=== PATIENT | female | born 1990 | race Caucasian/White ===

== ENCOUNTER → 2018-09-28 10:06 | Outpatient (CLI) | payer OTHER, MEDICAID, SELFPAY ==
--- NOTE | 2018-09-28 | DI.US.S_ITS ---
PROCEDURE: US OB >= 14 WEEKS FETUS INDICATIONS: ANATOMY SCAN OUTSIDE/PRIOR DATING DATA: Last menstrual period (LMP): 05/06/18. LMP-based estimated date of delivery (ASHA): 02/10/19. First dating scan (date and location): 09/28/18. Estimated date of delivery (ASHA) from first dating scan: 02/18/19. TECHNIQUE: Real-time scanning was performed of the fetus, with image documentation and biometric measurements. Endovaginal scanning: No COMPARISON: [facility], OB COMPLETE 14WKS OR MORE, 12/18/2016, 10:22. FINDINGS: General: A single living intrauterine gestation is present. Presentation: Breech. Placenta: Placental position is posterior, without previa. Amniotic fluid index: 1.3 cm, normal range is 5-24 cm. heart rate: 155 beats per minute. Maternal cervical canal: 4.0 cm long. Normal lower limit is 2.5 cm. biometrics: Biparietal diameter: 18 weeks 6 days Head circumference: 19 weeks 4 days Abdominal circumference: 20 weeks 0 days Femur length: 19 weeks 6 days Estimated gestational age from initial scan: 20 weeks 5 days Composite gestational age from present scan: 19 weeks 4 days Estimated weight and percentile: 318 g; 10th percentile based on LMP. Measurement variability for biometric dating: +/- 7 days from 14 weeks to 15 weeks 6 days gestation, +/- 10 days from 16 weeks to 21 weeks 6 days gestation, +/- 2 weeks from 22 weeks to 27 weeks 6 days gestation, +/- 3 weeks for 28 weeks gestation or later. weight reference: 4500 g or EFW >90/95% is considered macrosomia or large for gestational age. EFW <10% is small for gestational age. EFW 5% or less is considered intra-uterine growth restriction. Anatomic survey: Neuro: Ventricles are non-dilated at less than 10 mm. Cisterna magna is normal at 3-11 mm. Cerebellum is normal in size and morphology. Nuchal skin fold: Normal at less than 6 mm between 14-21 weeks gestational age. Face: Nose and lips, facial profile are normal. Spine: No evidence for spina bifida. Heart: 4-chambered heart is present, with normal ventricular outflow tracts. Diaphragm: Diaphragm is intact. Stomach: Left-sided stomach is present. Kidneys: No hydronephrosis. Normal is less than 5 mm in 2nd trimester, less than 7 mm in 3rd trimester. Cord: 3-vessel cord has orthotopic insertion. Bladder: Normal in size. Extremities: All 4 extremities identified. IMPRESSION: 1. Single living IUP with mean composite gestational age of 19 weeks 4 days corresponding to ultrasound ASHA of 02/18/19. 2. Normal anatomic survey. Dictated by: Mihir Correa [facility] Interpreted: Simon Campos MD on 09/28/2018 at 13:26 Approved by: Simon Campos M.D. on 09/28/2018 at 15:02
== END ==
PROVIDERS: Visit Provider Midwife
DX: Z36.89 Encounter for other specified antenatal screening (principal); Z3A.19 19 weeks gestation of pregnancy
CPT/HCPCS: 76811

== ENCOUNTER → 2018-12-18 09:26 | Outpatient (CLI) | payer OTHER, MEDICAID, SELFPAY ==
--- NOTE | 2018-12-18 | DI.US.S_ITS ---
PROCEDURE: US OB LIMITED INDICATIONS: SMALL FOR GESTATIONAL AGE ON ANATOMY SCAN OUTSIDE/PRIOR DATING DATA: Last menstrual period (LMP): 05/06/18. LMP-based estimated date of delivery (ASHA): 02/10/19. First dating scan (date and location): Not performed. Estimated date of delivery (ASHA) from first dating scan: Not available. TECHNIQUE: Real-time scanning was performed of the fetus, with image documentation and biometric measurements. Endovaginal scanning: Not performed COMPARISON: None. FINDINGS: General: A single living intrauterine gestation is present. Presentation: Vertex. Placenta: Placental position is posterior fundal, without previa. Amniotic fluid index: 11.6 cm, normal range is 5-24 cm. heart rate: 152 beats per minute. Maternal cervical canal: 4.5 cm long. Normal lower limit is 2.5 cm. biometrics: Biparietal diameter: 7.8 cm, 31 weeks 2 days. Head circumference: 29.7 cm, 32 weeks 6 days. Abdominal circumference: 27.4 cm, 31 weeks 3 days. Femur length: 5.9 cm, 30 weeks 5 days. Estimated gestational age by last menstrual period. 31 week one day Composite gestational age from present scan: 31 weeks 4 days. Estimated weight and percentile: 1757 g, 46% Measurement variability for biometric dating: +/- 7 days from 14 weeks to 15 weeks 6 days gestation, +/- 10 days from 16 weeks to 21 weeks 6 days gestation, +/- 2 weeks from 22 weeks to 27 weeks 6 days gestation, +/- 3 weeks for 28 weeks gestation or later. weight reference: 4500 g or EFW >90/95% is considered macrosomia or large for gestational age. EFW <10% is small for gestational age. EFW 5% or less is considered intra-uterine growth restriction. Other: Limited evaluation of chest/diaphragm, four-chamber heart, stomach/abdomen, bilateral kidneys and urinary bladder show no gross abnormality. IMPRESSION: 1. Single live intrauterine with fetus in vertex presentation. heart rate is 152 beats per minute. Normal growth. Normal amount of amniotic fluid. 2. Limited anatomic survey shows no gross abnormality. Dictated by: Simon Campos M.D. on 12/18/2018 at 11:31 Approved by: Simon Campos M.D. on 12/18/2018 at 11:34
== END ==
PROVIDERS: PCP Midwife; Visit Provider Midwife
DX: O36.5930 Maternal care for other known or suspected poor fetal growth, third trimester, not applicable or unspecified (principal); Z3A.31 31 weeks gestation of pregnancy
CPT/HCPCS: 76815

== ENCOUNTER → 2020-05-22 08:17 | Outpatient (CLI) | payer OTHER, MEDICAID, SELFPAY ==
--- NOTE | 2020-05-22 | DI.US.S_ITS ---
PROCEDURE: US PELVIC COMPLETE INDICATIONS: LOWER ABDOMINAL PAIN TECHNIQUE: Real-time scanning was performed of the pelvic organs, with image documentation. Additional endovaginal scanning was necessary due to incomplete visualization of the adnexal and endometrial structures by transabdominal scanning. COMPARISON: None. FINDINGS: Transabdominal scanning: Limited scanning through the kidneys shows no hydronephrosis. No pathologic free abdominal or pelvic fluid. Endovaginal scanning: Uterus: Uterus is normal in size at 9.6 x 5.7 x 4.2 cm. The endometrium measures 10-11 mm in combined thickness. A trace of simple fluid can be seen along the cervical canal. Ovaries: The right ovary measures 2.7 x 1.7 x 1.2 cm and demonstrates a thick-walled cyst with internal echoes and peripheral vascularity that measures 1.3 x 0.7 x 1.1 cm. The left ovary measures 3.1 x 2.5 x 2.6 cm and demonstrates a thick walled simple appearing cyst seen that measures up to 1.7 cm. Normal appearing arterial and venous flow is confirmed to each ovary. No adnexal masses can be seen on either side. IMPRESSION: No imaging explanation is found for this patient's presenting symptoms. There is a complex cyst seen involving the right ovary, which is likely related to hemorrhagic cyst. At clinical discretion, a followup pelvic ultrasound is suggested in 6 weeks to assure resolution/ improvement. Dictated by: Yonas Ambriz M.D. on 05/22/2020 at 9:55 Approved by: Yonas Ambriz M.D. on 05/22/2020 at 9:57
== END ==
PROVIDERS: PCP Nurse Practitioner Family; Referring Provider Nurse Practitioner Family; Visit Provider Nurse Practitioner Family
DX: R10.30 Lower abdominal pain, unspecified (principal); N83.291 Other ovarian cyst, right side
CPT/HCPCS: 76856

== ENCOUNTER → 2020-09-26 09:13 | Outpatient (CLI) | payer OTHER, MEDICAID, SELFPAY ==
--- NOTE | 2020-09-26 | DI.US.S_ITS ---
PROCEDURE: US OB >= 14 WEEKS FETUS INDICATIONS: ANATOMY SCAN OUTSIDE/PRIOR DATING DATA: Last menstrual period (LMP): 05/06/20 . LMP-based estimated date of delivery (ASHA): 02/10/21 . First dating scan (date and location): 09/26/20 . Estimated date of delivery (ASHA) from first dating scan: 02/18/21 . TECHNIQUE: Real-time scanning was performed of the fetus, with image documentation and biometric measurements. Endovaginal scanning: Not performed COMPARISON: [facility], PELVIC COMPLETE, 06/26/2020, 16:04. [facility], PELVIC COMPLETE, 05/22/2020, 8:31. [facility], OB >= 14 WEEKS FETUS, 09/28/2018, 10:28. FINDINGS: General: A single living intrauterine gestation is present. Presentation: Breech. Placenta: Placental position is posterior , without previa. Amniotic fluid index: 11.3 cm, normal range is 5-24 cm. Largest pocket measures 3.5 cm heart rate: 157 beats per minute. Maternal cervical canal: 7.3 cm long. Normal lower limit is 2.5 cm. biometrics: Biparietal diameter: 4.5 cm, 19 weeks 3 days Head circumference: 16.8 cm, 19 weeks 3 days Abdominal circumference: 14.1 cm, 19 weeks 3 days Femur length: 2.9 cm, 19 weeks 0 days Estimated gestational age from initial scan: not applicable. Composite gestational age from present scan: 19 weeks 2 days Estimated weight and percentile: 286 g, 6th percentile Measurement variability for biometric dating: +/- 7 days from 14 weeks to 15 weeks 6 days gestation, +/- 10 days from 16 weeks to 21 weeks 6 days gestation, +/- 2 weeks from 22 weeks to 27 weeks 6 days gestation, +/- 3 weeks for 28 weeks gestation or later. weight reference: 4500 g or EFW >90/95% is considered macrosomia or large for gestational age. EFW <10% is small for gestational age. EFW 5% or less is considered intra-uterine growth restriction. Anatomic survey: Neuro: Ventricles are non-dilated at less than 10 mm. Cisterna magna is normal at 3-11 mm. Cerebellum is normal in size and morphology. Nuchal skin fold: Normal at less than 6 mm between 14-21 weeks gestational age. Face: Nose and lips, facial profile are normal. Spine: No evidence for spina bifida. Heart: Left ventricular outflow track within normal limits otherwise the heart and right ventricular outflow tract not seen secondary to position. Diaphragm: Diaphragm is intact. Stomach: Left-sided stomach is present. Kidneys: No hydronephrosis. Normal is less than 5 mm in 2nd trimester, less than 7 mm in 3rd trimester. Cord: 3-vessel cord has orthotopic insertion. There is marginal placental cord insertion approximately 0.6 cm from the edge. Bladder: Normal in size. Extremities: All 4 extremities identified. IMPRESSION: Single living intrauterine fetus in breech presentation. Estimated weight at the 6th percentile as above. heart and ventricular outflow tracts not well sonographically visualized. Recommend follow-up. Remaining anatomic survey within normal limits Marginal placental cord insertion. Dictated by: Thompson Townsend M.D. on 09/26/2020 at 16:27 Approved by: Thompson Townsend M.D. on 09/26/2020 at 16:33
== END ==
PROVIDERS: PCP Nurse Practitioner Family; Referring Provider Midwife; Visit Provider Midwife
DX: Z36.89 Encounter for other specified antenatal screening (principal); Z3A.19 19 weeks gestation of pregnancy
CPT/HCPCS: 76811

== ENCOUNTER → 2020-10-23 09:23 | Outpatient (CLI) | payer OTHER, MEDICAID, SELFPAY ==
--- NOTE | 2020-10-23 09:25 | DI.US.S_ITS ---
PROCEDURE: US OB FOLLOW UP INDICATIONS: FOLLOW UP ANATOMY OUTSIDE/PRIOR DATING DATA: Last menstrual period (LMP): 05/06/20 LMP-based estimated date of delivery (ASHA): 02/10/21 . First dating scan (date and location): 09/26/20 Estimated date of delivery (ASHA) from first dating scan: 02/18/21 . TECHNIQUE: Real-time scanning was performed of the fetus, with image documentation. Endovaginal scanning: Not performed COMPARISON: [facility], OB >= 14 WEEKS FETUS, 09/26/2020, 9:57. [facility], PELVIC COMPLETE, 06/26/2020, 16:04. [facility] PELVIC COMPLETE, 05/22/2020, 8:31. FINDINGS: A single living intrauterine gestation is present. Presentation: Breech. Placenta: Placental position is posterior , without previa. heart rate: 178 beats per minute. Maternal cervical canal: 4.4 cm long. Normal lower limit is 2.5 cm. Estimated gestational age from initial scan: 23 weeks 1 day . There is normal appearance of the 4 chambered heart, right ventricular outflow tract, chest, stomach, kidneys and urinary bladder. Marginal placental cord insertion again noted although not well seen on the current examination. IMPRESSION: Single living intrauterine fetus in breech presentation Normal appearance of the four-chamber heart and right ventricular outflow tract, which completes the anatomic survey Dictated by: Thompson Townsend M.D. on 10/23/2020 at 15:32 Approved by: Thompson Townsend M.D. on 10/23/2020 at 15:36
== END ==
PROVIDERS: PCP Nurse Practitioner Family; Referring Provider Midwife; Visit Provider Midwife
DX: Z36.2 Encounter for other antenatal screening follow-up (principal); Z3A.23 23 weeks gestation of pregnancy
CPT/HCPCS: 76816

== ENCOUNTER → 2020-11-13 07:44 | Outpatient (CLI) | payer OTHER, MEDICAID, SELFPAY ==
--- NOTE | 2020-11-13 07:46 | DI.US.S_ITS ---
PROCEDURE: US OB LIMITED INDICATIONS: WEIGHT BELOW 10TH PERCENTILE OUTSIDE/PRIOR DATING DATA: Last menstrual period (LMP): 05/06/20. LMP-based estimated date of delivery (ASHA): 02/10/21 . First dating scan (date and location): 09/26/20 . Estimated date of delivery (ASHA) from first dating scan: 02/18/21 . TECHNIQUE: Real-time scanning was performed of the fetus, with image documentation. Endovaginal scanning: Not needed COMPARISON: [facility], OB LIMITED, 12/18/2018, 9:38. FINDINGS: A single living intrauterine gestation is present. Presentation: Vertex. Placenta: Placental position is posterior , without previa. Amniotic fluid index: 12.6 cm, normal range is 5-24 cm. heart rate: 143 beats per minute. Maternal cervical canal: 5.7 cm long. Normal lower limit is 2.5 cm. Estimated gestational age from initial scan: 26 weeks 1 day NOTE: biometry was performed, documenting BPD 6.4 cm correlated with a gestational age of 25 weeks 6 days. Head circumference measures 23.8 cm, which correlates with a 25 weeks 6 day gestational age. Abdominal circumference measures 21.6 cm, which correlates with 26 week 1 day gestation age. Femur length 4.8 cm, which correlates with a gestational age of 26 weeks 0 days. These measurements are internally consistent with a current gestational age of 26 weeks 0 days and therefore there has been appropriate interval growth. weight is estimated at 880 g, at the 33rd percentile for current gestational age, normal.. IMPRESSION: Appropriate interval growth from 1st OB ultrasound 09/26/20. The current estimated gestational weight is at the 33rd percentile for current gestational age, normal. Amniotic fluid volume is normal. Dictated by: Sridhar Zelaya M.D. on 11/13/2020 at 9:17 Approved by: Sridhar Zelaya M.D. on 11/13/2020 at 9:22
== END ==
PROVIDERS: PCP Nurse Practitioner Family; Referring Provider Midwife; Visit Provider Midwife
DX: O26.842 Uterine size-date discrepancy, second trimester (principal); Z3A.26 26 weeks gestation of pregnancy
CPT/HCPCS: 76815

== ENCOUNTER → 2021-01-09 08:26 | Outpatient (CLI) | payer OTHER, MEDICAID, SELFPAY ==
--- NOTE | 2021-01-09 | DI.US.S_ITS ---
PROCEDURE: US OB FOLLOW UP INDICATIONS: AMNIOTIC FLUID INDEX AND RIGHT OVARIAN CYST OUTSIDE/PRIOR DATING DATA: Last menstrual period (LMP): 05/06/2020. LMP-based estimated date of delivery (ASHA): 02/10/2021. First dating scan (date and location): 09/26/2020. Estimated date of delivery (ASHA) from first dating scan: 02/18/2021. TECHNIQUE: Real-time scanning was performed of the fetus, with image documentation. Endovaginal scanning: Not performed COMPARISON: [facility], PELVIC COMPLETE, 05/22/2020, 8:31. [facility] PELVIC COMPLETE, 06/26/2020, 16:04. [facility] OB >= 14 WEEKS FETUS, 09/26/2020, 9:57. [facility] OB LIMITED, 11/13/2020, 8:08. [facility] OB FOLLOW UP, 10/23/2020, 9:30. FINDINGS: A single living intrauterine gestation is present. Presentation: Vertex. Placenta: Placental position is posterior , without previa. Amniotic fluid index: 14.5 cm, normal range is 5-24 cm; largest pocket 4.3 cm. heart rate: 141 beats per minute. Maternal cervical canal: Not well seen. Estimated gestational age from initial scan: 34 weeks 2 days. Maternal ovaries are not visualized. IMPRESSION: 1. A single living intrauterine gestation is redemonstrated. 2. Normal JOY. 3. Maternal ovaries are not visualized. Dictated by: Renata Samuel M.D. on 01/09/2021 at 10:53 Approved by: Renata Samuel M.D. on 01/09/2021 at 10:58
== END ==
PROVIDERS: PCP Nurse Practitioner Family; Referring Provider Nurse Practitioner Family; Visit Provider Midwife
DX: Z36.89 Encounter for other specified antenatal screening (principal); O34.83 Maternal care for other abnormalities of pelvic organs, third trimester; N83.201 Unspecified ovarian cyst, right side; Z3A.34 34 weeks gestation of pregnancy
CPT/HCPCS: 76816

== ENCOUNTER → 2021-11-12 09:24 | Outpatient (CLI) | payer OTHER, MEDICAID, SELFPAY ==
--- NOTE | 2021-11-12 | DI.US.S_ITS ---
PROCEDURE: US OB <= 14 WEEKS FETUS INDICATIONS: RIGHT PELVIC PAIN OUTSIDE/PRIOR DATING DATA: Last menstrual period (LMP): 09/30/2021. LMP-based estimated date of delivery (ASHA): 07/07/2022. First dating scan (date and location): 11/12/2021. Estimated date of delivery (ASHA) from first dating scan: 07/12/2022. TECHNIQUE: Real-time scanning was performed of the fetus and maternal pelvic organs, with image documentation. Endovaginal scanning was also performed to better visualize the fetus and maternal ovaries. COMPARISON: None. FINDINGS: Intrauterine gestational sac is identified measuring 7 mm corresponding to 5 weeks 3 days. A yolk sac is identified. No visualized subchorionic hemorrhage. No pole or heart tones. Corpus luteal cyst is noted within the left ovary. IMPRESSION: Intrauterine gestational sac with yolk sac as described above corresponding to 5 weeks 3 days. Recommend short interval imaging follow-up in correlation to beta HCG levels for evaluation of visualization of pole. We strive to produce accurate, complete, and clear reports of imaging services. To assist us in improving patient care, this report was composed using standard report templates and voice recognition software. Therefore, it may contain abnormal punctuation, insertions and/or omissions. Occasional wrong-word or sound-alike substitutions may occur. Though we review the report and make efforts to correct it, we do recommend that the report be read carefully in proper context to recognize any text inaccuracies. Dictated by: Jeane Parsons M.D. on 11/12/2021 at 17:31 Approved by: Jeane Parsons M.D. on 11/12/2021 at 17:32
== END ==
PROVIDERS: PCP Nurse Practitioner Family; Referring Provider Nurse Practitioner Family; Visit Provider Nurse Practitioner Family
DX: R10.31 Right lower quadrant pain (principal); R10.9 Unspecified abdominal pain; O99.891 Other specified diseases and conditions complicating pregnancy; Z3A.01 Less than 8 weeks gestation of pregnancy
CPT/HCPCS: 76801; 76817